=== PATIENT | male | born 1995 | race Two or more races ===

== ENCOUNTER 2016-06-20 21:28 | Emergency (ER) | payer MEDICAID ==
[~2016-06-20] VITALS: Ht 180.3 cm; Wt 83.9 kg
[2016-06-20 22:03] VITALS: BP 125/79
== END 2016-06-21 00:06 | disposition home or self-care (01) ==
LOC: ER 21:36
DX: S83.91XA Sprain of unspecified site of right knee, initial encounter (principal); X50.9XXA Other and unspecified overexertion or strenuous movements or postures, initial encounter; Y93.67 Activity, basketball; Y99.8 Other external cause status; Y92.89 Other specified places as the place of occurrence of the external cause
CPT/HCPCS: 29505; 73562